=== PATIENT | female | born 1985 | race Caucasian/White ===

== ENCOUNTER 2019-11-04 18:26 | Emergency (ER) | payer MEDICAID ==
[~2019-11-04] VITALS: Ht 157.5 cm; Wt 84.4 kg
[2019-11-04 19:02] VITALS: BP 134/63; Ht 157.5 cm; Wt 84.4 kg
== END 2019-11-04 19:23 | disposition home or self-care (01) ==
LOC: ED 18:26
DX: J18.9 Pneumonia, unspecified organism (principal)
CPT/HCPCS: 87804